=== PATIENT | male | born 2000 | race Caucasian/White ===

== ENCOUNTER 2019-02-25 01:49 | Emergency (ER) | payer OTHER ==
[~2019-02-25] VITALS: Ht 162.6 cm; Wt 63.5 kg
[~2019-02-25 01:49] MED LIST: ALEVE
[2019-02-25 02:12] VITALS: BP 150/85
--- NOTE | 2019-02-25 02:14 | NUR ---
PT AMBUALTED TO BED 12.
--- NOTE | 2019-02-25 02:24 | NUR ---
BIB SELF. REPORTS PLAYING IWTH HIS DOG ABOUT 1 HOUR AGO WHEN HE WAS BIT IN THE LET FOREARM LEAVING A 0.5CM PUNCTURE WOUND. NO OTHER SYMPTOMS REPORTED. STATES HIS DOGS VACCINES ARE UP TO DATE. BED IN LOW LOCKED POSITION.
--- NOTE | 2019-02-25 02:26 | NUR ---
DR HUTCHISON AT BEDSIDE.
--- NOTE | 2019-02-25 02:28 | NUR ---
WOUND CLEANED WITH NS, BACITRACIN OINTMENT APPLIED ORDERED. DRESSED WITH NO STICK DRESSING AND BANDAID. BLEEDING CONTROLLED.
[2019-02-25] MEDS ORDERED: BACITRACIN OINT 500 UNITS/GM PKT TP ONE ×2 (02:30→02:39)
[2019-02-25 02:35] VITALS: BP 140/78
== END 2019-02-25 02:34 | disposition home or self-care (01) ==
LOC: MED 01:49
DX: S51.852A Open bite of left forearm, initial encounter (principal); Z79.899 Other long term (current) drug therapy; W54.0XXA Bitten by dog, initial encounter; Y93.89 Activity, other specified; Y92.89 Other specified places as the place of occurrence of the external cause; Y99.8 Other external cause status
CPT/HCPCS: 99283

== ENCOUNTER 2019-09-24 20:39 | Emergency (ER) | payer OTHER ==
[~2019-09-24] VITALS: Ht 162.6 cm; Wt 61.2 kg
[2019-09-24 20:40] VITALS: BP 150/78
--- NOTE | 2019-09-24 20:43 | NUR ---
TO LOBBY A/W BED AMBULATORY
[2019-09-24] MEDS ORDERED: ACETAMINOPHEN EXTRA STRENGTH 500 MG TAB PO ONE (20:50)
--- NOTE | 2019-09-24 21:19 | NUR ---
PT TAKEN TO BED 3
--- NOTE | 2019-09-24 21:25 | NUR ---
18 YO M BIB SELF AND GIRLFRIEND PRESENTS TO ED C/O FEVER AND COUGH X 5-6 DAYS. PT STATES COUGH WAS WET AND PRODUCTIVE FOR FIRST COUPLE DAYS BUT NOW IT IS DRY AND NAGGING. TOOK COUGH MEDICINE AND FEVER REDUCERS X 1-2 DAYS WITH NO RELIEF. REPORTS PLUERITIC CHEST PAIN WITH COUGH AND "PRESSURE WHILE BREATHING". REPORTS VOMITING ON DAY 2 BUT HAS SINCE RESOLVED. DENIES NVD AT THIS TIME. PMH-- DENIES RX-- DENIES
--- NOTE | 2019-09-24 21:46 | NUR ---
Dr. Lomax examining patient.
--- NOTE | 2019-09-24 22:00 | NUR ---
FLU SWAB COLLECTED.
[2019-09-24 22:40] VITALS: BP 136/80
--- NOTE | 2019-09-24 22:40 | NUR ---
Patient discharged with v/s stable. Written and verbal after care instructions given and explained. Patient alert, oriented and verbalized understanding of instructions. Ambulatory with steady gait. All questions addressed prior to discharge. ID band removed. Patient advised to follow up with PMD. Rx of Motrina and Promethazine HCL given. Patient educated on indication of medication including possible reaction and side effects. Opportunity to ask questions provided and answered.
== END 2019-09-24 22:40 | disposition home or self-care (01) ==
LOC: MED 20:39
DX: J10.1 Influenza due to other identified influenza virus with other respiratory manifestations (principal); R03.0 Elevated blood-pressure reading, without diagnosis of hypertension; Z79.899 Other long term (current) drug therapy
CPT/HCPCS: 87804; 99283